=== PATIENT | female | born 2000 | race Caucasian/White ===

== ENCOUNTER 2023-01-21 15:00 | Outpatient (CLI) | payer OTHER, SELFPAY ==
[2023-01-21 19:27] LABS: Alanine Aminotransferase 74 U/L (6-35); Albumin Level 4.9 g/dL (3.5-5.1); Alkaline Phosphatase 89 U/L (38-126); Anion Gap 10 mmol/L (8-16); Aspartate Amino Transferase 71 U/L (14-36); Bilirubin,Total 0.7 mg/dL (0.2-1.3); Blood Urea Nitrogen 10 mg/dL (7-17); Carbon Dioxide 28 mmol/L (22-30); Chloride 103 mmol/L (98-107); Estimated Glomerular Filt Rate > 60; Glucose 106 mg/dL (65-110); Potassium 4.1 mmol/L (3.4-5.0); Sodium 141 mmol/L (137-145)
[2023-01-21 19:38] LABS: Basophils Absolute Auto 0.1 K/mm3 (0.0-0.1); Basophils Percent Auto 0.6 % (0.2-1.2); Eosinophils Absolute Auto 0.1 K/mm3 (0-0.3); Eosinophils Percent Auto 1.4 % (0-4.4); Hemoglobin 15.3 g/dL (12.0-15.0); Immature Granulocyte Absolute 0.01 K/mm3 (0.00-0.031); Immature Granulocyte Percent A 0.1 % (0-0.5); Lymphocytes Absolute Auto 1.26 K/mm3 (0.9-3.2); Lymphocytes Percent Auto 14.5 % (18.3-44.2); Mean Corpuscular HGB Conc 33.3 g/dl (32-36); Mean Corpuscular Hemoglobin 28.4 pg (26-34); Mean Corpuscular Volume 85.5 fl (80-100); Mean Platelet Volume 12.5 fl (7.4-10.4); Monocytes Absolute Auto 0.4 K/mm3 (0.1-0.6); Monocytes Percent Auto 4.6 % (2.6-8.5); Neutrophils Absolute Auto 6.9 K/mm3 (1.3-6.7); Neutrophils Percent Auto 78.8 % (45.5-73.1); Platelet Count Result 235 k/mm3 (150-375); Red Blood Count 5.38 M/mm3 (4.2-5.4); Red Cell Distribution Width 12.1 % (11.5-14.5); White Blood Count 8.7 K/mm3 (4.5-10.0)
[2023-01-21 19:48] LABS: Thyroid Stimulating Hormone 0.678 uIU/mL (0.465-4.680)
[2023-01-21 19:58] LABS: Hemoglobin A1C 4.5 % (<5.7)
== END 2023-01-21 15:01 | disposition home or self-care (01) ==
LOC: ANHGOSHLAB 15:03
PROVIDERS: PCP Internal Medicine; Visit Provider Nurse Practitioner
DX: Z13.21 Encounter for screening for nutritional disorder (principal); I10 Essential (primary) hypertension; E66.01 Morbid (severe) obesity due to excess calories
CPT/HCPCS: 36415; 80053; 82607; 83036; 84443; 85025

== ENCOUNTER 2023-02-04 14:43 | Outpatient (CLI) | payer OTHER, SELFPAY ==
[2023-02-04 19:09] LABS: Iron 85 ug/dL (37-170)
[2023-02-04 19:18] LABS: Percent Iron Saturation 27 % (20-50)
[2023-02-04 20:57] LABS: HIV 1/2 Ab P24 Ag Result Negative (Negative)
[2023-02-04 21:08] LABS: Hepatitis B Surface Antigen Negative (Negative)
[2023-02-04 21:25] LABS: Hepatitis C Virus Antibody Negative (Negative)
[2023-02-11 13:41] LABS: Gliadin AB, IgG <1.0 U/mL (<15.0); TTG IGA AB <1.0 U/mL (<15.0)
== END 2023-02-04 14:44 | disposition home or self-care (01) ==
LOC: ANHGOSHLAB 14:45
PROVIDERS: PCP Internal Medicine; Visit Provider Nurse Practitioner
DX: R74.8 Abnormal levels of other serum enzymes (principal)
CPT/HCPCS: 36415; 83540; 83550; 86255; 86364; 86703; 86803; 87340; G0432

== ENCOUNTER 2023-02-09 09:19 | Outpatient (CLI) | payer OTHER, SELFPAY ==
--- NOTE | ~2023-02-09 | US_ITS ---
Limited Abdominal Sonogram: Real-time sonographic imaging of the right upper quadrant was performed. Clinical History: Abnormal liver enzymes Findings: The liver appears echogenic, with no evidence of mass lesion or bile duct dilatation. Main portal vein demonstrates normal direction of flow. The gallbladder is well distended, and appears no rmal with no evidence of gallstone or wall thickening. The common bile duct measures 3 mm. The visua lized pancreas, aorta, and IVC are unremarkable. Impression: Diffuse fatty infiltration of liver. Reviewed, dictated and finalized at location M. Impression: Diffuse fatty infiltration of liver.
== END 2023-02-09 09:20 | disposition home or self-care (01) ==
PROVIDERS: PCP Internal Medicine; Visit Provider Nurse Practitioner
DX: K76.0 Fatty (change of) liver, not elsewhere classified (principal); R74.8 Abnormal levels of other serum enzymes
CPT/HCPCS: 76705

== ENCOUNTER 2023-03-09 09:00 | Outpatient (RCR) | payer OTHER, SELFPAY ==
--- NOTE | 2023-03-04 16:12 | PTOPEVAL1 ---
Assessment and note entered by Leti Trevizo, PT Evaluation Information Assessment Status Evaluation Diagnosis L foot pain Onset November 25, 2022 Subjective Information have been wearing the walking boot most of the time, sometimes in the house walk without anything on foot/ankle; initially used crutches, then had knee scooter; now without anything; had CT scan---undecided about surgery or not--dr wants her to try therapy and see what happens; limited walking and activity due to pain in foot and walking boot; Reported Pain Level Pain Score Self Report Additional Pain Score Comments pain range in the past week 4-05/06; L foot hurts and sore: dorsum-lateral forefoot shooting pain anterior ankle PRN; reported walking tolerance with boot on 20 minutes and in home without boot 5-10 min; decrease pain with tylenol, ice, sit/rest; sleeping disrupted --problems falling asleep and getting comfortable 40-60 min ( normal for her is 10-20 min) Assessment PT Clinical Summary Kath has the diagnosis of L foot fracture in November. Initially she was using crutches, knee walker and now without assistive gait device, and still using the walking boot. She reports decreased walking and sleeping tolerances due to ankle/foot pain. She also reports increase in hip and back pain, due to uneven height of the boot and her normal shoe. She reports the dr wants to see how she responds to increase activity and determine if surgery is indicated or not. With the evaluation: she has decreased strength and ROM of L ankle, unable to tolerate full weight bearing on L LE in standing; 2 minute walking distance is 375'. Skilled PT services are indicated for modalities to decrease pain, therapeutic exercises to increase ankle and toe ROM and strength and education for home exercises and gait pattern. Orders to wean off boot as tolerated. Plan of Care Interventions Electrical Stimulation,Gait Training,Hot Pack/Cold Pack,Manual Therapy,Neuro Re-education,Patient Education,Therapeutic Activities, Therapeutic Exercise,Ultrasound,Other Other Interventions fluidotherapy,
--- NOTE | 2023-03-31 10:52 | PTOPDC ---
Assessment and note entered by Leti Trevizo, PT Evaluation Information Assessment Status Discharge - Pt Not Present Diagnosis L foot pain Onset November 25, 2022 Assessment PT Clinical Summary Kath has received 2 PT sessions. She then called on 03-11-23 and canceled PT, because she may be having surgery on her foot. No further contact from pt, therefore, she will be discharged at this time. Plan of Care PT Services Indicated No
== END 2023-03-31 13:50 | disposition home or self-care (01) ==
LOC: ANHPT 09:00
PROVIDERS: PCP Internal Medicine
DX: S92.355D Nondisplaced fracture of fifth metatarsal bone, left foot, subsequent encounter for fracture with routine healing (principal)
CPT/HCPCS: 97110; 97161; 97530

== ENCOUNTER 2023-04-28 14:19 | Outpatient (CLI) | payer OTHER, SELFPAY | END 2023-04-28 14:20 | disposition home or self-care (01) | LOC: ANHGOSHLAB 14:20 | PROVIDERS: PCP Internal Medicine; Visit Provider Nurse Practitioner | DX: R74.8 Abnormal levels of other serum enzymes (principal) | CPT/HCPCS: 36415; 82728 ==

== ENCOUNTER 2023-04-28 14:55 | Outpatient (CLI) | payer OTHER, SELFPAY ==
--- NOTE | ~2023-04-28 | XR_ITS ---
EXAM: XR lumbar spine min 4V DATE: 04/28/2023 15:21 HISTORY: worsening chronic Lt sided low back pain w/o injury . COMPARISON: None available. FINDINGS: 5 nonrib-bearing lumbar-type vertebral bodies. Pedicles intact. Mild lumbar scoliosis. Nor mal vertebral body alignment. Vertebral body heights preserved. Disc spaces maintained. Normal facets and posterior elements. No fracture or dislocation. IMPRESSION: Mild lumbar scoliosis. Reviewed, dictated and finalized at location K. IMPRESSION: Mild lumbar scoliosis.
== END 2023-04-28 14:56 | disposition home or self-care (01) ==
LOC: ANHIMG 14:59
PROVIDERS: PCP Nurse Practitioner; Visit Provider Nurse Practitioner
DX: M54.50 Low back pain, unspecified (principal); M41.86 Other forms of scoliosis, lumbar region
CPT/HCPCS: 36415; 72110; 82728